=== PATIENT | male | born 1985 | race African-American/Black ===

== ENCOUNTER 2019-10-21 02:52 | Emergency (ER) | payer OTHER ==
[~2019-10-21] VITALS: Ht 188 cm; Wt 81.6 kg
--- NOTE | 2019-10-21 02:52 | NUR ---
PT BIB [facility], PREBOOK. TAKEN TO [facility]
[2019-10-21 02:54] VITALS: BP 137/103
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
--- NOTE | 2019-10-21 03:14 | NUR ---
Dr. Singh examining patient.
[2019-10-21 03:24] VITALS: BP 137/103
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
== END 2019-10-21 03:25 ==
LOC: MED 02:52
DX: S63.692A Other sprain of right middle finger, initial encounter (principal); I10 Essential (primary) hypertension; V89.2XXA Person injured in unspecified motor-vehicle accident, traffic, initial encounter; Y93.89 Activity, other specified; Y92.488 Other paved roadways as the place of occurrence of the external cause; Y99.8 Other external cause status
CPT/HCPCS: 99283